=== PATIENT | female | born 1965 | race African-American/Black ===

== ENCOUNTER 2016-12-15 13:12 | Emergency (ER) | payer OTHER ==
[~2016-12-15] VITALS: Ht 170.2 cm; Wt 79.4 kg
[~2016-12-15 13:12] MED LIST: ALBUTEROL INHAL17 GM IH; AZITHROMYCIN 2250 MG PO; CEFTIN500 MG PO; CIPROFLOXACIN500 M1 PO; HYDROCODONE-AP1 EAC6 PO; IBUPROFEN 600600 M1 PO; LEVOTHROID100 MC1 PO; NAPROSYN500 MG PO; NORCO 5-325 TA1 EACH PO; NORFLEX100 MG PO; ONDANSETRON HCL4 M2 PO; PHENERGAN 25 MG25 M1 PO; PRILOSEC40 MG PO; ULTRAM 50MG TAB50 MG PO; ZOFRAN4 MG PO; [UNRECOGNIZED DRUG - OTHER] PO
[2016-12-15] MEDS ORDERED: NORCO 5-325 TA1 EACH PO (15:08)
[2016-12-15 15:40] VITALS: BP 144/98
== END 2016-12-15 15:40 | disposition home or self-care (01) ==
LOC: ER 13:12
DX: S63.602A Unspecified sprain of left thumb, initial encounter (principal); F17.210 Nicotine dependence, cigarettes, uncomplicated; F10.99 Alcohol use, unspecified with unspecified alcohol-induced disorder; W22.01XA Walked into wall, initial encounter; Y93.89 Activity, other specified; Y92.89 Other specified places as the place of occurrence of the external cause; Y99.8 Other external cause status

== ENCOUNTER 2017-08-17 20:52 | Inpatient (IN) | payer OTHER ==
[~2017-08-17] VITALS: Ht 167.6 cm; Wt 79.0 kg
--- NOTE | ~2017-08-17 | EKG ---
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: [id number] : 1965 Requested By: Chris Moscoso Order Number: [id number] MD: Mejia Linda Measurements Intervals [place] Rate: 64 P: 43 [place]: 190 QRS: 57 QRSD: 96 T: 10 QT: 443 QTc: 457 Interpretive Statements Sinus rhythm Normal tracing Compared to ECG 01/22/2011 13:43:01 Sinus bradycardia no longer present Right-axis deviation no longer present Electronically Signed On 08-18-2017 11:01:40 CDT by Mejia Linda [email or web address] <ELECTRONICALLY SIGNED> By: Mejia Linda MD, [facility] 08/18/17 1101 03 03 Mejia Linda MD, [facility] /EPI
[2017-08-17 20:53] VITALS: BP 134/78
[2017-08-17 21:27] LABS: POC CA IONIZED 4.6 mg/dL (4.5-5.3); POC HEMOGLOBIN 16.7 g/dL (12.0-15.0); POC POTASSIUM 3.7 mmol/L (3.5-5.1)
[2017-08-17 21:32] LABS: HEMATOCRIT 48.3 % (37.0-47.0); HEMOGLOBIN 16.5 gm/dL (12.0-15.0); MCH 31.6 pg (26.0-34.0); MCHC 34.2 g/dL (28.0-37.0); MCV 92.5 fL (80.0-100.0); RBC 5.22 mil/uL (4.20-5.00); RDW 13.6 % (10.5-14.5); WBC 5.7 thou/uL (4.0-11.0)
[2017-08-17 21:34] LABS: ANION GAP 9 mmol/L (7-16); BUN 12 mg/dL (7-18); CHLORIDE 105 mmol/L (98-107); CO2 26 mmol/L (21-32); GLUCOSE 125 mg/dL (74-106); POTASSIUM 3.8 mmol/L (3.5-5.1); SODIUM 140 mmol/L (136-145)
[2017-08-17 21:43] LABS: TROPONIN-I < 0.04 ng/mL (<0.04-0.07)
[2017-08-17 21:48] LABS: APTT 31.7 Seconds (24.5-32.8); PROTIME 9.9 Seconds (9.3-11.4)
[2017-08-17 22:41] LABS: URINE BILIRUBIN NEGATIVE (Negative); URINE BLOOD NEGATIVE (Negative); URINE COLOR YELLOW; URINE GLUCOSE-RANDOM* NEGATIVE (Negative); URINE KETONES NEGATIVE (Negative); URINE LEUKOCYTES-REFLEX NEGATIVE (Negative); URINE PROTEIN (DIPSTICK) NEGATIVE (Negative); URINE UROBILINOGEN 0.2 E.U./dl (0.2-1.0)
[2017-08-17 22:50] LABS: AMP/METHAMP Negative (Negative); BARBITURATES Negative (Negative); BENZODIAZEPINES Negative (Negative); COCAINE Negative (Negative); METHADONE Negative (Negative); OPIATES Negative (Negative); PCP Negative (Negative); THC POSITIVE (Negative)
[2017-08-17 23:18] VITALS: BP 113/68
[2017-08-17 23:59] VITALS: BP 110/68
[2017-08-18 00:15] VITALS: BP 103/64
[2017-08-18 04:12] LABS: HEMATOCRIT 41.9 % (37.0-47.0); MCH 31.4 pg (26.0-34.0); MCHC 34.1 g/dL (28.0-37.0); MCV 91.8 fL (80.0-100.0); RBC 4.56 mil/uL (4.20-5.00); RDW 13.5 % (10.5-14.5); WBC 6.9 thou/uL (4.0-11.0)
[2017-08-18 04:18] LABS: HEMOGLOBIN 14.3 gm/dL (12.0-15.0)
[2017-08-18 04:30] VITALS: BP 102/62
[2017-08-18 04:30] LABS: CALCIUM 8.2 mg/dL (8.5-10.1); CREATININE 0.8 mg/dL (0.6-1.0); POTASSIUM 3.6 mmol/L (3.5-5.1)
[2017-08-18 04:36] LABS: CHOLESTEROL 224 mg/dL (<200); HDL CHOLESTEROL 42 mg/dL (>40); LDL CHOLESTEROL 154 mg/dL (<100); TC:HDL 5.3 Ratio (Not establshd); TRIGLYCERIDE 144 mg/dL (<150); VLDL 29 mg/dL (<40)
[2017-08-18 04:40] LABS: SERUM ASSESSMENT Clear
[2017-08-18 08:31] VITALS: BP 111/98
[2017-08-18 16:02] VITALS: BP 111/70
[2017-08-18 18:09] LABS: GLYCOHEMOGLOBIN (HGB A1C) 5.3 % (4.8-5.6)
[2017-08-18 19:57] VITALS: BP 125/72
[2017-08-19 04:03] VITALS: BP 120/76
[2017-08-19 05:19] LABS: HEMATOCRIT 44.7 % (37.0-47.0); HEMOGLOBIN 14.8 gm/dL (12.0-15.0); MCH 30.8 pg (26.0-34.0); MCHC 33.1 g/dL (28.0-37.0); MCV 93.1 fL (80.0-100.0); RBC 4.8 mil/uL (4.20-5.00); RDW 13.5 % (10.5-14.5); WBC 5.2 thou/uL (4.0-11.0)
[2017-08-19 05:29] LABS: ALBUMIN 2.8 g/dL (3.4-5.0); CALCIUM 8.2 mg/dL (8.5-10.1); CREATININE 0.8 mg/dL (0.6-1.0); POTASSIUM 3.6 mmol/L (3.5-5.1); TOTAL BILIRUBIN 0.5 mg/dL (<0.1-1.0); TOTAL PROTEIN 5.6 g/dL (6.4-8.2)
[2017-08-19 05:45] LABS: FOLIC ACID 19.4 ng/mL (8.6-58.9); TSH 26.187 uIU/mL (0.358-3.740)
[2017-08-19 07:35] VITALS: BP 126/83
[2017-08-19] MEDS ORDERED: LIPITOR 20 MG T20 M1 PO (11:33)
[2017-08-19] MEDS ORDERED: ASPIR 8181 MG PO (11:33)
[2017-08-19] MEDS ORDERED: SYNTHROID125 MCG PO (11:33)
[2017-08-19 12:21] VITALS: BP 126/83
== END 2017-08-19 13:35 | disposition home or self-care (01) | DRG 101 ==
LOC: ER 20:52 → 4E 23:06 → EROBS 23:06 → 4E 08-18 00:54
PROVIDERS: Emergency Medicine; Hospitalist; Nurse Practitioner Family
DX: G40.909 Epilepsy, unspecified, not intractable, without status epilepticus (principal); G43.909 Migraine, unspecified, not intractable, without status migrainosus; F17.210 Nicotine dependence, cigarettes, uncomplicated; E89.0 Postprocedural hypothyroidism; E78.5 Hyperlipidemia, unspecified; Z28.21 Immunization not carried out because of patient refusal; Z82.49 Family history of ischemic heart disease and other diseases of the circulatory system
CPT/HCPCS: 10183